=== PATIENT | male | born 1995 | race African-American/Black ===

== ENCOUNTER 2018-04-22 01:25 | Emergency (ER) | payer MEDICAID ==
[~2018-04-22] VITALS: Ht 167.6 cm; Wt 65.8 kg
[2018-04-22] MEDS ORDERED: SODIUM CHLORIDE 0.9% 2,000 ML IV ONE (03:15)
[2018-04-22 03:26] LABS: Basophils # (auto) 0 uL; Basophils % (auto) 0.4 % (0.0-2.0); Eosinophils # (auto) 0.1 uL; Eosinophils % (auto) 1.6 % (0.0-7.0); Hematocrit 44.8 % (41.0-53.0); Hemoglobin 14.8 g/dL (13.5-17.5); Lymphocytes # (auto) 1.9 uL; Lymphocytes % (auto) 21.3 % (10.0-50.0); Mean Corpuscular Hemoglobin 29.5 pg (28.0-32.0); Mean Corpuscular Volume 89.4 fL (80.0-100.0); Monocytes # (auto) 1.1 uL; Monocytes % (auto) 12.1 % (0.0-12.0); Neutrophils # (auto) 5.6 uL; Neutrophils % (auto) 64.6 % (37.0-80.0); Platelet Count (auto) 256 10^3/uL (140-450); Red Blood Cells 5.01 10^6/uL (4.5-5.90); Red Cell Distribution Width 11.8 % (11.8-14.3); White Blood Cell 8.7 10^3/uL (4.4-10.8)
[2018-04-22 03:46] LABS: Albumin 3.8 g/dL (3.4-5.0); Anion Gap 9 (5-15); Blood Alcohol < 3.0 mg/dL (0-5); Blood Urea Nitrogen 13 mg/dL (7-18); Calcium 8.8 mg/dL (8.5-10.1); Carbon Dioxide 27 mmol/L (21-32); Chloride 100 mmol/L (98-107); Glucose 144 mg/dL (74-106); Magnesium 2.2 mg/dL (1.6-2.6); Potassium 3.5 mmol/L (3.5-5.1); Sodium 136 mmol/L (136-145)
[2018-04-22 03:47] LABS: Alanine Aminotransferase 44 U/L (16-61); Aspartate Aminotransferase 56 U/L (15-37); BUN/Creatinine Ratio 9.9; GFR African American 86 mL/min; GFR Non-African American 71 mL/min
[2018-04-22 03:50] LABS: Alkaline Phosphatase 84 U/L (45-117); Bilirubin, Total 0.8 mg/dL (0.2-1.0); Total Protein 7.3 g/dL (6.4-8.2)
[2018-04-22 03:52] LABS: Salicylate < 1.7 mg/dL (2.8-20.0)
[2018-04-22 04:08] LABS: Acetaminophen < 2.0 ug/mL (10-30)
[2018-04-22 05:50] VITALS: BP 119/71
== END 2018-04-22 06:25 | disposition home or self-care (01) ==
LOC: ER 01:29
DX: T73.0XXA Starvation, initial encounter (principal); E86.0 Dehydration; X58.XXXA Exposure to other specified factors, initial encounter; Z59.0 Homelessness
CPT/HCPCS: 36415; 80053; 80320; 80329; 83735; 85025; 96360; 99283; J7030

== ENCOUNTER 2018-04-25 03:47 | Emergency (ER) | payer MEDICAID ==
[~2018-04-25] VITALS: Ht 167.6 cm; Wt 68.0 kg
[2018-04-25 03:56] VITALS: BP 169/116
== END 2018-04-25 06:15 | disposition home or self-care (01) ==
LOC: EDBD 03:47 → ER 03:47
DX: R63.1 Polydipsia (principal); E86.0 Dehydration; Z59.0 Homelessness